=== PATIENT | female | born 1995 | race African-American/Black ===

== ENCOUNTER 2023-01-01 23:50 | Emergency (ER) | payer OTHER, SELFPAY ==
[2023-01-01 23:57] VITALS: BP 96/55; PULSE 78; RESP 16; TEMP 36.5; O2SAT 100
--- NOTE | 2023-01-02 02:57 | ED.ABDPAIN ---
HPI - Abdominal Pain General Chief Complaint: Abdominal Pain Stated Complaint: left flank pain Time Seen by Provider: 01/02/23 02:43 History of Present Illness HPI narrative: 27-year-old female present to the emergency department for evaluation of right flank pain. Patient reports that she was seen at [facility] yesterday and was diagnosed with ovarian cyst. Patient denies any vaginal bleeding vaginal discharge and denies any abdominal pain. Patient only reports right flank pain. Patient denies any associated nausea or vomiting. Patient reports a prior history of ectopic and only has 1 fallopian tube. Related Data Allergies Allergy/AdvReac Type Severity Reaction Status Date / Time No Known Allergies Allergy Verified 01/02/23 02:54 Review of Systems Review of Systems: All systems reviewed & are unremarkable except as noted in HPI and below Exam Narrative: APPEARANCE: Well appearing, no pain, no distress, well-nourished. HEAD: normocephalic, atraumatic. EYES: PERRLA/EOMI, conjunctivae clear. NOSE: Normal no drainage NECK: Supple. No adenopathy, no masses. RESPIRATORY: Airway patent, respirations nonlabored. Clear to auscultation bilaterally, no rales, rhonchi, wheezing. CARDIOVASCULAR: Regular rate and rhythm without murmurs rubs or gallops. ABDOMINAL: Soft nontender abdomen with normal bowel sounds, right CVA tenderness to palpation MUSCULOSKELETAL: Moves all extremities. Strength/ROM intact, No edema, No calf tenderness. NEURO: Alert. Cranial nerves II through XII intact. Grossly intact SKIN: Warm, dry. Normal Color Course Course Emergency Course: 27-year-old female presented the ED for evaluation of right flank pain. Patient had a CT scan at [place] yesterday that showed poorly defined hypodense lesion in the rectouterine pouch region suggestive of benign left ovarian cyst: CT showed no evidence of ureteral calculi. Both kidneys appear normal in size and position there is no evidence of hydronephrosis nephrolithiasis or renal mass bilaterally. Patient's UA does have some leukocytosis and white blood cells. Urine culture is pending. CT scan as outpatient showed no nephrolithiasis. Patient's pain in his right flank so did not feel this is consistent with her ovarian cyst seen on the left. No additional imaging was done. Patient was encouraged of close follow-up with her physicians. Vital Signs Vital signs: Vital Signs Temperature 97.7 F 01/01/23 23:57 Pulse Rate 78 01/01/23 23:57 Respiratory Rate 16 01/01/23 23:57 Blood Pressure 96/55 L 01/01/23 23:57 Pulse Oximetry 100 01/01/23 23:57 Oxygen Delivery Room Air 01/01/23 23:57 Temperature 97.7 F 01/01/23 23:57 Pulse Rate 69 01/02/23 04:58 Respiratory Rate 16 01/02/23 04:58 Blood Pressure 110/68 01/02/23 04:58 Pulse Oximetry 100 01/02/23 04:58 Oxygen Delivery Room Air 01/01/23 23:57 MDM - Abdominal Pain Lab Data Labs: Lab Results 01/02/23 Range/Units 03:27 Urine Color Yellow (Yellow) Urine Appearance Cloudy H (Clear) Urine pH 5.5 (5.0-9.0) Ur Specific [place] 1.020 (1.001-1.035) Urine Protein Negative (Negative) mg/dL Urine Glucose (UA) Negative (Negative) mg/dL Urine Ketones Negative (Negative) mg/dL Ur Blood (Man) Negative (Negative) Urine Nitrate Negative (Negative) Urine Bilirubin Negative (Negative) Urine Urobilinogen 0.2 (<2.0) mg/dL Leukocyte Esterase Rfl Trace H (Negative) LANDON/UL Urine RBC 0-2 (0-2) /hpf Urine WBC 6-10 H /hpf Ur Squamous Epith Cells Few (Few) /hpf Urine Bacteria Rare /hpf Urine Casts 0-2 UCG Bedside Result Negative Reference Range: Negative Discharge Plan Discharge Clinical Impression: Acute flank pain Patient Disposition: Home, Self-Care Condition: Stable Instructions: Antibiotic Form, Abdominal Pain (ED)
[2023-01-02 03:36] LABS: Appearance Urine Cloudy (Clear); Bacteria Urine Rare /hpf; Bilirubin Urine Negative (Negative); Blood Urine Negative (Negative); Color Urine Yellow (Yellow); Glucose Urine UA Negative (Negative); Ketones Urine Negative (Negative); Leukocyte Esterase Ur Trace LEU/UL (Negative); Nitrate Urine Negative (Negative); Non Pathogenic Casts 0-2; Protein Urine Negative (Negative); RBC Urine 0-2 /hpf (0-2); Squamous Epithelial Cell Urine Few /hpf (Few); Urobilinogen Urine 0.2 mg/dL (<2.0); pH Urine 5.5 (5.0-9.0)
[2023-01-02 03:52] LABS: Add Urine Microscopic? YES
[2023-01-02] MEDS: KETOROLAC 30 MG/ML VIAL (*BKC) IM (04:09)
[2023-01-02 04:58] VITALS: BP 110/68; PULSE 69; RESP 16; O2SAT 100
== END 2023-01-02 05:00 | disposition home or self-care (01) ==
PROVIDERS: Emergency Provider Emergency Medicine
DX: R10.9 Unspecified abdominal pain (principal)
CPT/HCPCS: 81001; 81025; 87086; 87088; 96372; 99283; J1885